=== PATIENT | male | born 1970 | race Caucasian/White ===

== ENCOUNTER 2016-09-15 22:03 | Emergency (ER) | payer OTHER ==
[~2016-09-15] VITALS: Ht 175.3 cm; Wt 72.0 kg
[2016-09-15 22:09] VITALS: Ht 175.3 cm; Wt 72.0 kg
--- NOTE | 2016-09-15 23:45 | RADRPT ---
PROCEDURE: CT Brain without. CLINICAL INDICATION: Fall, history of alcohol abuse TECHNIQUE: A CT of the brain was performed utilizing axial sections from the skull base through th e vertex without contrast. The scan was reviewed in soft tissue brain and high frequency resolution bone algorithm windows. Images were reviewed on a high-resolution PACS workstation. The exam DLP = 720 mGy-cm. COMPARISON: None available FINDINGS: The ventricles and sulci are symmetric and normal in size and morphology. There is no acute intracr anial hemorrhage, an acute large territorial infarct, an abnormal extra-axial fluid collection, or a space-occupying intracranial mass. There is no mass effect or midline shift. The lawler-white matte r differentiation is intact. The posterior fossa, brainstem, and basal cisterns are unremarkable. The subcutaneous soft tissues and scalp are unremarkable. There are no acute fractures. The visual ized mastoid air cells and paranasal sinuses are clear. The visualized bilateral globes and orbits are unremarkable. RPTAT: HTLT IMPRESSION: No acute intracranial abnormality. .Nicole Aguilera MD, MD Date Time Electronically viewed and signed by .Nicole Aguilera MD, on 09/15/2016 23:45 .T/
--- NOTE | 2016-09-16 00:09 | ERD ---
ER Documentation Chief Complaint Date/Time DATE: 09/16/16 TIME: 00:08 Chief Complaint ETOH HPI There is a 45-year-old male brought in by family for alcohol abuse. Patient was vomited family brought him in. Patient has history of chronic alcohol abuse. No other current complaints. ROS All systems reviewed and are negative except as per history of present illness. PMhx/Soc Medical and Surgical Hx: Unable to obtain Hx Alcohol Use: Yes (daily per ems) Hx Substance Use: No Hx Tobacco Use: No Smoking Status: Unknown if ever smoked Physical Exam Vitals Vital Signs Date Time Temp Pulse Resp B/P Pulse Ox O2 Delivery O2 Flow Rate FiO2 09/15/16 22:09 97.7 76 16 143/79 96 Physical Exam Const: [] Head: Atraumatic Eyes: Normal Conjunctiva ENT: Normal External Ears, Nose and Mouth. Neck: Full range of motion..~ No meningismus. Resp: Clear to auscultation bilaterally Cardio: Regular rate and rhythm, no murmurs Abd: Soft, non tender, non distended. Normal bowel sounds Skin: No petechiae or rashes Back: No midline or flank tenderness Ext: No cyanosis, or edema Neur: Awake and alert Psych: Normal Mood and Affect Procedures/MDM CT of head was read as negative. Medical decision makin-year-old gentleman with acute alcohol intoxication. At this point patient is clinically stable for outpatient management will be discharged home. Departure Diagnosis: Primary Impression: Alcoholic intoxication Complication of substance-induced condition: uncomplicated Qualified Code: F10.120 - Alcoholic intoxication, uncomplicated Condition: Stable ERMA OCONNOR Sep 16, 2016 00:09
[2016-09-16 00:56] VITALS: BP 138/81; PULSE 92; RESP 16; TEMP 98.1
== END 2016-09-16 00:58 | disposition home or self-care (01) ==
LOC: E/R 22:03
DX: F10.120 Alcohol abuse with intoxication, uncomplicated (principal); R40.2242 Coma scale, best verbal response, confused conversation, at arrival to emergency department; R40.2352 Coma scale, best motor response, localizes pain, at arrival to emergency department; R40.2142 Coma scale, eyes open, spontaneous, at arrival to emergency department; R40.4 Transient alteration of awareness
CPT/HCPCS: 70450; Z7502